=== PATIENT | female | born 1970 | race Caucasian/White ===

== ENCOUNTER 2017-02-19 06:42 | Emergency (ER) | payer OTHER ==
[~2017-02-19] VITALS: Ht 157.5 cm; Wt 67.0 kg
[2017-02-19] MEDS ORDERED: PERCOCET 5/31 TABLET PO (07:45)
[2017-02-19] MEDS ORDERED: LIDODERM 5% P1 PATCH TD (07:45)
[2017-02-19 07:54] VITALS: BP 101/77
[2017-02-19] MEDS ORDERED: SOMA250 MG PO (08:00)
== END 2017-02-19 08:03 | disposition home or self-care (01) ==
LOC: EME 06:42
DX: M54.32 Sciatica, left side (principal); F17.200 Nicotine dependence, unspecified, uncomplicated
CPT/HCPCS: 99281; 99283